=== PATIENT | female | born 1975 | race Hispanic/Latino ===

== ENCOUNTER → 2025-02-02 | Outpatient (CLI) | payer BC ==
[~2025-02-02] MED LIST: AMMONIUM LACTATE 12% TP; CEFU500T67 PO; DOXY100T2 PO; ERGO50CA PO; LEVO200C3 PO
== END | disposition home or self-care (01) ==
LOC: RAH 15:02
PROVIDERS: ATTEND Family Medicine
DX: Z12.31 Encounter for screening mammogram for malignant neoplasm of breast (principal)
CPT/HCPCS: 77067